=== PATIENT | female | born 1940 | race Caucasian/White ===

== ENCOUNTER → 2016-12-09 | Outpatient (CLI) | payer MEDICARE, OTHER | END | disposition home or self-care (01) | LOC: GMAH 17:03 | PROVIDERS: ATTEND Family Medicine | DX: R41.82 Altered mental status, unspecified (principal) ==

== ENCOUNTER → 2016-12-22 | Outpatient (CLI) | payer MEDICARE, OTHER | END | disposition home or self-care (01) | LOC: GMAH 10:33 | PROVIDERS: ATTEND Family Medicine | DX: E78.2 Mixed hyperlipidemia (principal) ==

== ENCOUNTER → 2018-01-04 | Outpatient (CLI) | payer MEDICARE, OTHER | LOC: GMAH 10:59 | PROVIDERS: ATTEND Family Medicine | DX: I10 Essential (primary) hypertension (principal); E78.2 Mixed hyperlipidemia ==

== ENCOUNTER → 2019-10-24 | Outpatient (CLI) | payer MEDICARE, OTHER ==
--- NOTE | 2019-10-25 15:23 | US ---
US THYROID CLINICAL STATEMENT:79 years Female NONTOXIC SINGLE THYROID NODULE. COMPARISON: None TECHNIQUE: Transcutaneous scanning, grayscale and Doppler modes. FINDINGS: Size right thyroid lobe: 4.0 x 2.7 x 2.3 cm Size left thyroid lobe: 3.7 x 1.7 x 1.2 cm Size isthmus: 0.35 cm Estimated total number of nodules greater than or equal to 1 cm: 1. No distinct cyst, no fluid collection, no large calcifications. Nodule 1: Size: 2.7 x 2.6 x 2.7 cm Location: Right Mid Composition: solid or almost completely solid: 2 points Echogenicity: isoechoic: 1 point Shape: taller than wide: 3 points Margins: smooth: 0 points Echogenic foci: none: 0 points. ACR Total Points: 6; ACR TI-RADS risk category: TR4 - moderately suspicious nodule. No abnormalities in the surrounding soft tissue. IMPRESSION: 1. Nodule 1: ACR TI-RADS 2017 Category TR4. Recommend: Ultrasound-guided fine needle aspiration. Recommendations based upon [facility] Best Practice recommendations and ACR TI-RADS 2017 guidelines. Please see below*. 2. Soft tissue around the thyroid gland is unremarkable. *ACR TI-RADS 2017 Recommendations for imaging follow-up of nodules (baseline study): TR1: No FNA or follow up TR2: No FNA or follow up TR3: FNA if >/= 2.5 cm, follow up if 1.5 - 2.4 cm in 1, 3, and 5 years TR4: FNA if >/= 1.5 cm, follow up if 1.0 - 1.4 cm in 1, 2, 3, and 5 years TR5: FNA if >/= 1.0 cm, follow up if 0.5 - 0.9 cm every year for 5 years ACR TI-RADS recommends that no more than two nodules with the highest ACR TI-RADS total point should be biopsied and no more than four nodules should be followed. These recommendations do not apply to patients with increased risk for thyroid cancer or patients with symptomatic thyroid disease. Electronically signed by: Vazquez Mike MD 10/25/2019 3:21 PM CDT
== END | disposition home or self-care (01) ==
LOC: US 13:42
PROVIDERS: ATTEND Family Medicine
DX: E04.1 Nontoxic single thyroid nodule (principal)

== ENCOUNTER → 2019-11-01 | Outpatient (CLI) | payer MEDICARE, OTHER ==
--- NOTE | 2019-11-02 16:14 | US ---
Thyroid Biopsy, Image-Guided: Biopsy of Thyroid: Ultrasound CLINICAL INFORMATION: 79 years Female. Right thyroid mass. COMPARISON: None. TECHNIQUE: Procedure was explained to the patient with risks and benefits. The patient gave verbal and written consent. Sterile preparation draping. 1% xylocaine dermal anesthetic 9-1 mixture with sodium bicarbonate. Sterile ultrasound guidance. A total of 6 passes right thyroid mass; 4 needle samplings with a separate 1.5 inch, 25-gauge needle per sample, and 2 aspirations, with a separate 1.5 inch, 25-gauge needle/10-cc syringe set, per aspiration. Each sample was placed on a separate slide and fixed in 95% alcohol container. Saccomanno fluid drawn into aspirate needle and rinse injected into Saccomanno container. Specimens to be sent for pathologic examination at remote facility. . Patient tolerated procedure well. Biopsy #: 1 Nodule reference number based on prior diagnostic ultrasound:1 Maximum size: 2.7 cm Location: right; mid ACR TI-RADS risk category: TR4 (4-6 points) Reason for biopsy: meets ACR TI-RADS criteria Complications: Minimal skin ecchymosis. FINDINGS: Multiple images demonstrate the echogenic needle within the nodule/mass during sampling and aspirations. IMPRESSION: Successful ultrasound guided fine needle aspiration of right thyroid nodule. ACR TI-RADS Risk Category TR 4. Pathological report is pending. Electronically signed by: Vazquez Mike MD 11/02/2019 4:12 PM CDT
== END ==
LOC: US 10:00
PROVIDERS: ATTEND Family Medicine
DX: E04.1 Nontoxic single thyroid nodule (principal)

== ENCOUNTER → 2019-11-20 | Outpatient (CLI) | payer MEDICARE, OTHER | LOC: GMA MATASK 10:58 | PROVIDERS: ATTEND Family Medicine | DX: I10 Essential (primary) hypertension (principal) ==